=== PATIENT | male | born 1980 | race Caucasian/White ===

== ENCOUNTER → 2016-06-25 | Outpatient (CLI) | payer OTHER ==
--- NOTE | 2016-06-26 08:53 | DI ---
Indication: ITS.REASON: DX TESTING KNEE RIGHT 2 VIEW Comparison: None Findings: There is no acute fracture, dislocation or malalignment identified. Patient however does show what appears to be a bipartite patella as well as three compartment degenerative changes in a small suprapatellar joint effusion. Impression: 1. Probable bipartite patella. 2. Three compartment degenerative changes with a small suprapatellar joint effusion. 3. No definitive acute fracture. .
--- NOTE | 2016-06-26 09:01 | DI ---
Indication: ITS.REASON: DX TESTING LUMBAR SPINE 2-3 VIEWS: Comparison: None Technique: AP lateral and cone-down lateral views Findings: Patient shows normal vertebral body heights alignment and good preservation of the disc spaces. No acute findings currently appreciated. Incidentally noted is moderate volume of stool in the large bowel. Impression: 1. No acute bony findings in the lumbar spine. 2. Patient shows significant stool in the large bowel. .
--- NOTE | 2016-06-26 09:59 | DI ---
Indication: ITS.REASON: DX TESTING KNEE LEFT 2 VIEW Comparison: None Findings: Patient showed postoperative changes of previous anterior cruciate repair. A probable bipartite patella is identified. Three compartment degenerative changes are identified particularly prominent in the medial side and in the patellofemoral joint. Small suprapatellar joint effusion suspected. Impression: 1. Postoperative changes of previous anterior cruciate repair. 2. Three compartment degenerative changes. 3. Probable bipartite patella. .
== END ==
LOC: IMA 16:59
DX: Z02.9 Encounter for administrative examinations, unspecified (principal); M17.0 Bilateral primary osteoarthritis of knee